=== PATIENT | female | born 1965 | race Two or more races ===

== ENCOUNTER 2020-10-20 06:00 | Day surgery (SDC) | payer OTHER ==
[~2020-10-20 06:00] MED LIST: AVALIDE 300-121 EACH PO
== END 2020-10-20 15:20 | disposition home or self-care (01) ==
LOC: CIR.AMB 06:00
PROVIDERS: ATTEND Obstetrics & Gynecology
DX: C54.1 Malignant neoplasm of endometrium (principal); Z20.822 Contact with and (suspected) exposure to COVID-19

== ENCOUNTER 2020-12-03 09:45 | Inpatient (IN) | payer OTHER ==
[~2020-12-03] VITALS: Ht 154.9 cm; Wt 90.7 kg
[2020-12-08] MEDS ORDERED: AMITRIPTYLINE H10 MG (11:00)
[2020-12-08] MEDS ORDERED: ESTAZOLAM2 MG (11:01)
== END 2020-12-10 09:37 | disposition home or self-care (01) | DRG 741 ==
LOC: O/R 12-08 05:45 → OB/GYN 12-08 09:45
PROVIDERS: ADMIT Obstetrics & Gynecology; ATTEND Obstetrics & Gynecology
PROC: 0UT20ZZ Resection of Bilateral Ovaries, Open Approach (ICD-10-PCS; 2020-12-08)
PROC: 0UT70ZZ Resection of Bilateral Fallopian Tubes, Open Approach (ICD-10-PCS; 2020-12-08)
PROC: 0UT90ZZ Resection of Uterus, Open Approach (ICD-10-PCS; principal; 2020-12-08 07:00)
DX: C54.1 Malignant neoplasm of endometrium (principal); D25.2 Subserosal leiomyoma of uterus; D27.0 Benign neoplasm of right ovary; D27.1 Benign neoplasm of left ovary; N95.0 Postmenopausal bleeding; N85.00 Endometrial hyperplasia, unspecified; I10 Essential (primary) hypertension

== ENCOUNTER 2021-06-08 08:02 | Outpatient (CLI) | payer OTHER ==
[~2021-06-08 08:02] MED LIST changes: +AMITRIPTYLINE H10 MG; +ESTAZOLAM2 MG
== END 2021-06-08 08:11 | disposition home or self-care (01) ==
LOC: RX STUDY 08:02
PROVIDERS: ATTEND Internal Medicine Gastroenterology
DX: K59.09 Other constipation (principal); K56.600 Partial intestinal obstruction, unspecified as to cause; C18.9 Malignant neoplasm of colon, unspecified; K57.32 Diverticulitis of large intestine without perforation or abscess without bleeding

== ENCOUNTER 2021-08-12 07:47 | Outpatient (CLI) | payer OTHER | END 2021-08-12 07:48 | disposition home or self-care (01) | LOC: NUCLEAR 07:47 | PROVIDERS: ATTEND Specialist | DX: C54.1 Malignant neoplasm of endometrium (principal) ==

== ENCOUNTER 2021-09-08 09:45 | Inpatient (IN) | payer OTHER ==
[~2021-09-08] VITALS: Ht 154.9 cm; Wt 87.1 kg
[2021-09-08] MEDS ORDERED: AVALIDE 300-121 EACH PO (15:23)
[2021-09-08] MEDS ORDERED: IRBESARTAN-HCT1 EACH PO (15:54)
== END 2021-09-14 20:11 | disposition home or self-care (01) | DRG 337 ==
LOC: O/R 09-10 06:00 → OB/GYN 09-10 06:00
PROVIDERS: ADMIT Specialist; ATTEND Specialist
PROC: 0DNW0ZZ Release Peritoneum, Open Approach (ICD-10-PCS; 2021-09-10)
PROC: 3E1M38Z Irrigation of Peritoneal Cavity using Irrigating Substance, Percutaneous Approach (ICD-10-PCS; 2021-09-10)
PROC: 0WBF0ZZ Excision of Abdominal Wall, Open Approach (ICD-10-PCS; principal; 2021-09-10 11:00)
DX: C48.8 Malignant neoplasm of overlapping sites of retroperitoneum and peritoneum (principal); Z20.822 Contact with and (suspected) exposure to COVID-19

== ENCOUNTER 2022-03-29 08:06 | Outpatient (CLI) | payer OTHER ==
[~2022-03-29 08:06] MED LIST changes: +IRBESARTAN-HCT1 EACH PO
== END 2022-03-29 08:09 | disposition home or self-care (01) ==
LOC: NUCLEAR 08:06
PROVIDERS: ATTEND Internal Medicine Hematology & Oncology
DX: C54.1 Malignant neoplasm of endometrium (principal); C78.6 Secondary malignant neoplasm of retroperitoneum and peritoneum; Z88.8 Allergy status to other drugs, medicaments and biological substances; Z91.013 Allergy to seafood
CPT/HCPCS: 78816; A9552